=== PATIENT | female | born 1965 | race Caucasian/White ===

== ENCOUNTER 2021-12-12 13:33 | Emergency (ER) | payer BC ==
--- NOTE | 2021-12-12 14:08 | XRAY Report ---
PROCEDURE: Chest 1 View X-Ray INDICATIONS: Chest pain TECHNIQUE: One view of the chest was acquired. COMPARISON: None FINDINGS: Surgical changes and devices: None. Lungs and pleura: No pleural effusions or pneumothorax. Lungs are clear. Mediastinum: Mediastinal contours appear normal. Heart size is normal. Bones and chest wall: No suspicious bony lesions. Overlying soft tissues appear unremarkable. IMPRESSION: No acute cardiopulmonary pathology. Reviewed by: Marko Sands MD on 12/12/2021 2:07 PM PDT Approved by: Marko Sands MD on 12/12/2021 2:07 PM PDT Station ID: [id number]
[2021-12-12 14:12] LABS: BASOPHILS % (AUTO) 0.6 %; EOSINOPHILS # (AUTO) 0.1 10^3/uL (0.0-0.7); EOSINOPHILS % (AUTO) 1.6 %; HCT - HEMATOCRIT 39.6 % (37.0-47.0); HGB - HEMOGLOBIN 13.6 g/dL (12.0-16.0); LYMPHOCYTES # (AUTO) 2.1 10^3/uL (1.5-3.5); LYMPHOCYTES % (AUTO) 34.4 %; MEAN CORPUSCULAR HEMOGLOBIN 32.1 pg (27.0-31.0); MEAN CORPUSCULAR HGB CONC 34.3 g/dL (32.0-36.0); MEAN CORPUSCULAR VOLUME 93.4 fL (81.0-99.0); MEAN PLATELET VOLUME 9.2 fL (7.9-10.8); MONOCYTES # (AUTO) 0.4 10^3/uL (0.0-1.0); MONOCYTES % (AUTO) 6.6 %; NEUTROPHILS # (AUTO) 3.5 10^3/uL (1.5-6.6); NEUTROPHILS % (AUTO) 56.6 %; PLT - PLATELET COUNT 241 10^3/uL (130-450); RED BLOOD COUNT 4.24 10^6/uL (4.20-5.40); RED CELL DISTRIBUTION WIDTH 12.4 % (12.0-15.0); WHITE BLOOD COUNT 6.2 x10^3/uL (4.8-10.8)
[2021-12-12 14:28] LABS: ALBUMIN 4.8 g/dL (3.2-5.5); ALBUMIN/GLOBULIN RATIO 1.5 (1.0-2.2); BILIRUBIN,TOTAL 0.7 mg/dL (0.2-1.0); CALCIUM 9.5 mg/dL (8.5-10.3); CREATININE 0.7 mg/dL (0.4-1.0); POTASSIUM 3.7 mmol/L (3.5-5.0); TOTAL PROTEIN 7.9 g/dL (6.7-8.2)
[2021-12-12] MEDS ORDERED: SUCRALFATE 1 GM/10 ML UDC PO STA (15:11)
[2021-12-12] MEDS ORDERED: MAG HYDROX/AL HYDROX/SIMETH 30 ML UDC PO STA (15:11)
[2021-12-12] MEDS ORDERED: LIDOCAINE VISCOUS 2% 15 ML UDC MM STA (15:11)
--- NOTE | 2021-12-12 15:16 | ED Physician Documentation ---
History of Present Illness - Stated complaint Stated Complaint: CHEST PX - Chief complaint Chief Complaint: Cardiac - History obtained from History obtained from: Patient - History of Present Illness Timing: How many weeks ago (2) Pain level max: 4 Pain level now: 3 - Additonal information Additional information: Patient is a 56-year-old female who presents to the emergency department stating that she has had a feeling of pressure in her chest constantly for the past 2 weeks. Nothing seems to make it better or worse. No change with inspiration, no change with exertion. Does have a history of "silent" reflux. No vomiting. No head, neck, back pain. Nonradiating. No cardiac history. The pain has been constant. 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 No leg swelling. No calf tenderness. No recent surgery. No travel. Review of Systems Constitutional: denies: Fever, Chills Nose: denies: Rhinorrhea / runny nose, Congestion Respiratory: denies: Cough GI: denies: Vomiting, Diarrhea : denies: Dysuria Skin: denies: Rash PD PAST MEDICAL HISTORY - Past Medical History Past Medical History: Yes GI: GERD Musculoskeletal: Rheumatoid arthritis - Present Medications Home Medications: Ambulatory Orders Medication Instructions Recorded Confirmed Etanercept [Enbrel Sureclick] 50 mg SQ .Q7DAYS 12/12/21 12/12/21 Methotrexate [Methotrexate Sodium] 8 tab PO .Q7DAYS 12/12/21 12/12/21 - Allergies Allergies/Adverse Reactions: Allergies Allergy/AdvReac Type Severity Reaction Status Date / Time No Known Drug Allergies Allergy Verified 12/12/21 13:51 - Living Situation Living Arrangement: reports: At home - Social History Does the pt smoke?: No Does the pt have substance abuse?: No - Family History Family history: reports: Non contributory PD ED PE NORMAL - Vitals Vital signs reviewed: Yes - General General: Alert and oriented X 3, No acute distress, Well developed/nourished - HEENT HEENT: PERRL, Moist mucous membranes - Neck Neck: Supple, no meningeal sign - Cardiac Cardiac: RRR, Strong equal pulses - Respiratory Respiratory: No respiratory distress, Clear bilaterally - Abdomen Abdomen: Soft, Non tender, Non distended - Derm Derm: Warm and dry - Extremities Extremities: No edema, No calf tenderness / cord - Neuro Neuro: Alert and oriented X 3 - Psych Psych: Normal mood, Normal affect Results - Vitals Vitals: Vital Signs - 24 hr 12/12/21 12/12/21 13:48 15:30 Temperature 35.9 C L 36.6 C Heart Rate 115 H 89 Respiratory 16 16 Rate Blood Pressure 148/81 H 145/89 H O2 Saturation 99 98 Oxygen O2 Source Room air - EKG (time done) 1341 Rate: Rate (enter#) (102) Rhythm: NSR [place]: Normal Intervals: Normal [place] QRS: Normal Ischemia: Non specific changes - Labs Labs: Laboratory Tests 12/12/21 12/12/21 12/12/21 14:07 14:07 14:07 WBC 6.2 RBC 4.24 Hgb 13.6 Hct 39.6 MCV 93.4 MCH 32.1 H MCHC 34.3 RDW 12.4 Plt Count 241 MPV 9.2 Neut # (Auto) 3.5 Lymph # (Auto) 2.1 [place] # (Auto) 0.4 Eos # (Auto) 0.1 Baso # (Auto) 0.0 Absolute Nucleated RBC 0.00 Nucleated RBC % 0.0 Sodium 135 Potassium 3.7 Chloride 98 L Carbon Dioxide 27 Anion Gap 10.0 BUN 16 Creatinine 0.7 Estimated GFR (MDRD) 86 L Glucose 218 H Calcium 9.5 Total Bilirubin 0.7 AST 22 ALT 22 Alkaline Phosphatase 78 Troponin I High Sens < 2.3 L Total Protein 7.9 Albumin 4.8 Globulin 3.1 Albumin/Globulin Ratio 1.5 Lipase 39 - Rads (name of study) cxr Radiology: Final report received, EMP read contemporaneously, See rad report PD MEDICAL DECISION MAKING - ED course Complexity details: reviewed results, re-evaluated patient, considered differential (No ST elevation [place], no aortic dissection, no PE, no tension pneumothorax, no aortic aneurysm), d/w patient ED course: 56-year-old female presents to the emergency department with ongoing chest pain for the past several weeks. No evidence of ACS, PE, pneumothorax, etc. feels with GI cocktail. No acute findings on laboratory testing chest x-ray or EKG. Patient counseled regarding signs and symptoms for which I believe and urgent re-evaluation would be necessary. Patient with good understanding of and agreement to plan and is comfortable going home at this time This document was made in part using voice recognition software. While efforts are made to proofread this document, sound alike and grammatical errors may occur. Departure - Departure Disposition: 01 Home, Self Care Clinical Impression: Chest pain Qualifiers: Chest pain type: unspecified Qualified Code(s): R07.9 - Chest pain, unspecified Condition: Good Instructions: ED Chest Pain Atypical Unkn Cause Follow-Up: Carleen Peterson MD [Primary Care Provider] - Within 1 week Comments: Your chest x-ray, laboratory testing and EKG did not show any acute abnormalities today. Please follow-up with your doctor for further care. Please return if you worsen. It is recommended that he have a cardiac stress test with your doctor. Discharge Date/Time: 12/12/21 15:32
[2021-12-12 15:32] VITALS: BP 145/89
== END 2021-12-12 15:32 | disposition home or self-care (01) ==
LOC: ED 13:33
DX: R07.9 Chest pain, unspecified (principal); K21.9 Gastro-esophageal reflux disease without esophagitis
CPT/HCPCS: 36415; 71045; 80053; 83690; 84484; 85025; 93005; 99284; A9270